=== PATIENT | male | born 1965 | race Caucasian/White ===

== ENCOUNTER → 2023-11-23 06:31 | Day surgery (SDC) | payer OTHER, SELFPAY | LOC: GI 06:31 | PROVIDERS: ATTENDING PHYSICIAN Internal Medicine Gastroenterology | DX: R13.10 Dysphagia, unspecified (principal); K31.89 Other diseases of stomach and duodenum; K20.0 Eosinophilic esophagitis; R12 Heartburn; K31.A19 Gastric intestinal metaplasia without dysplasia, unspecified site | CPT/HCPCS: 43239; 88305; 88342 ==

== ENCOUNTER → 2024-12-03 10:46 | Outpatient (REF) | payer OTHER, SELFPAY | LOC: HWRAD 10:46 | PROVIDERS: ATTENDING PHYSICIAN Nurse Practitioner Family | DX: R10.32 Left lower quadrant pain (principal); M54.9 Dorsalgia, unspecified | CPT/HCPCS: 72072; 73502 ==

== ENCOUNTER → 2024-12-17 07:34 | Outpatient (REF) | payer OTHER, SELFPAY | LOC: HWRAD 07:34 | PROVIDERS: ATTENDING PHYSICIAN Nurse Practitioner Family | DX: R10.32 Left lower quadrant pain (principal) | CPT/HCPCS: 76882 ==